=== PATIENT | female | born 1960 | race Caucasian/White ===

== ENCOUNTER 2020-11-26 11:05 | Outpatient (CLI) | payer OTHER ==
--- NOTE | 2020-11-26 13:25 | Ultrasound Report ---
PROCEDURE: Pelvic w/Transvaginal INDICATIONS: POSTMENOPAUSAL BLEEDING TECHNIQUE: Real-time scanning was performed of the pelvic organs, with image documentation. Additional endovagi nal scanning was necessary due to incomplete visualization of the adnexal and endometrial structures by transabdominal scanning. COMPARISON: None. FINDINGS: Transabdominal scanning: Limited scanning through the kidneys shows no hydronephrosis. No pathologi c free abdominal or pelvic fluid. Endovaginal scanning: Uterus: Uterus is normal in size at 5.3 x 3.4 x 4.5 cm. The endometrium measures 3 mm in combined t hickness. Nabothian cysts are noted at the cervix. Trace free fluid is present within the endometrial cavity. Calcified foci are noted within the endometrium. Ovaries: The right ovary measures 1.6 x 1.1 x 1.0 cm. The left ovary is not visualized. IMPRESSION: 1. Trace fluid in the endometrial cavity which may be associated with the patient's recent discharge. No other sonographic abnormalities. Of note, left ovary was not visualized today. Reviewed by: Nery Pinedo MD on 11/26/2020 12:23 PM [facility] Approved by: Nery Pinedo MD on 11/26/2020 12:23 PM [facility] Station ID: [id number]
== END 2020-11-26 11:06 | disposition home or self-care (01) ==
LOC: DI 11:05
PROVIDERS: ATTEND Obstetrics & Gynecology
DX: N95.0 Postmenopausal bleeding (principal)

== ENCOUNTER 2021-07-30 14:30 | Outpatient (CLI) | payer OTHER ==
[2021-07-31 21:47] LABS: BACTERIAL VAGINOSIS DNA NEGATIVE (NEGATIVE); CANDIDA GLABRATA DNA NEGATIVE (NEGATIVE); CANDIDA GROUP DNA NEGATIVE (NEGATIVE); CANDIDA KRUSEI DNA NEGATIVE (NEGATIVE); TRICHOMONAS VAGINALIS DNA NEGATIVE (NEGATIVE)
== END 2021-07-30 23:59 | disposition home or self-care (01) ==
LOC: LAB.R 14:30
PROVIDERS: ATTEND Obstetrics & Gynecology
DX: B37.3 Candidiasis of vulva and vagina (principal)
CPT/HCPCS: 87661; 87801

== ENCOUNTER 2021-12-25 14:58 | Outpatient (CLI) | payer OTHER ==
--- NOTE | 2021-12-25 16:43 | XRAY Report ---
PROCEDURE: Ribs 2 View RT INDICATIONS: R RIB PX TECHNIQUE: 2 views of the right ribs were acquired. COMPARISON: None FINDINGS: Surgical changes and devices: None. Bones and chest wall: No fractures or dislocations. No suspicious bony lesions. Overlying soft tis sues appear unremarkable. Lungs and pleura: The visualized lung appears clear. No pleural effusions or pneumothorax are visib le. IMPRESSION: No displaced rib fracture. Reviewed by: Gail Bansal MD, PhD on 12/25/2021 4:41 PM PST Approved by: Gail Bansal MD, PhD on 12/25/2021 4:41 PM PST Station ID: [id number]
== END 2021-12-25 23:59 | disposition home or self-care (01) ==
LOC: DI.N 14:58
PROVIDERS: ATTEND Family Medicine
DX: R07.81 Pleurodynia (principal)

== ENCOUNTER 2022-03-21 16:20 | Outpatient (CLI) | payer OTHER ==
--- NOTE | 2022-03-21 16:47 | XRAY Report ---
PROCEDURE: Chest 2 View X-Ray INDICATIONS: Chest pain TECHNIQUE: 2 view(s) of the chest. COMPARISON: None. FINDINGS: Surgical changes and devices: None. Lungs and pleura: No pleural effusions or pneumothorax. Lungs are clear. Mediastinum: Mediastinal contours are normal. Heart size is normal. Bones and chest wall: No suspicious bony abnormalities. Soft tissues appear unremarkable. IMPRESSION: No acute cardiopulmonary process demonstrated radiographically. Reviewed by: Arcenio Newman MD on 03/21/2022 4:46 PM PDT Approved by: Arcenio Newman MD on 03/21/2022 4:46 PM PDT Station ID: [id number]
== END 2022-03-21 16:21 | disposition home or self-care (01) ==
LOC: DI 16:20
PROVIDERS: ATTEND Student in an Organized Health Care Education/Training Program
DX: R07.9 Chest pain, unspecified (principal)

== ENCOUNTER 2022-09-25 13:36 | Outpatient (CLI) | payer OTHER ==
--- NOTE | 2022-09-26 12:52 | Mammography Report ---
BILATERAL DIGITAL SCREENING MAMMOGRAM 3D/2D: 09/25/2022 CLINICAL: Routine screening. No prior exams were available for comparison. There are scattered areas of fibroglandular density in both breasts (category b / 25%-50% glandular t issue). No significant masses, calcifications, or other findings are seen in either breast. IMPRESSION: NEGATIVE There is no mammographic evidence of malignancy. A 1 year screening mammogram is recommended. Based on the Tyrer Cuzick model (a risk assessment model) the patients lifetime risk is 6.0% and her 10 year risk is 2.8%. According to the ACR, ACS, and NCCN guidelines, an annual breast MRI exam asia g with mammogram is recommended if the patients lifetime risk is 20% or greater. This exam was interpreted at Station ID: [id number]. NOTE: For mammograms, a report in lay terms will be sent to the patient. Approximately 15% of breast malignancies will not be visualized mammographically. In the management of a palpable breast mass, a negative mammogram must not discourage biopsy of a clinically suspicious lesion. Electronically Signed By: Arcenio Newman M.D., jr/sunshine:09/25/2022 16:40:56 ACR BI-RADS Category 1: Negative 3341F PARENCHYMAL PATTERN: (A) - The breast(s) demonstrate(s) scattered fibroglandular densities. BI-RADS CATEGORY: (1) - 1 RECOMMENDATION: (ANNUAL) - Recommend routine annual screening mammography. [id number] 1 year screening LATERALITY: (B)
== END 2022-09-25 13:37 | disposition home or self-care (01) ==
LOC: DI.N 13:36
PROVIDERS: ATTEND Obstetrics & Gynecology
DX: Z12.31 Encounter for screening mammogram for malignant neoplasm of breast (principal)

== ENCOUNTER 2023-09-02 14:04 | Outpatient (CLI) | payer OTHER ==
--- NOTE | 2023-09-03 13:23 | Mammography Report ---
BILATERAL DIGITAL SCREENING MAMMOGRAM 3D/2D: 09/02/2023 CLINICAL: Routine screening. Comparison is made to exam dated: 09/25/2022 mammogram - [facility]. There are scattered areas of fibroglandular density in both breasts (category b / 25%-50% glandular t issue). No significant masses, calcifications, or other findings are seen in either breast. There has been no significant interval change. IMPRESSION: NEGATIVE There is no mammographic evidence of malignancy. A 1 year screening mammogram is recommended. Based on the Tyrer Cuzick model (a risk assessment model) the patients lifetime risk is 5.8% and her 10 year risk is 2.8%. According to the ACR, ACS, and NCCN guidelines, an annual breast MRI exam asia g with mammogram is recommended if the patients lifetime risk is 20% or greater. This exam was interpreted at Station ID: [id number]. NOTE: For mammograms, a report in lay terms will be sent to the patient. Approximately 15% of breast malignancies will not be visualized mammographically. In the management of a palpable breast mass, a negative mammogram must not discourage biopsy of a clinically suspicious lesion. Electronically Signed By: Drake Joe M.D. acr/penrad:09/02/2023 16:06:59 letter sent: No_Letter ACR BI-RADS Category 1: Negative 3341F PARENCHYMAL PATTERN: (A) - The breast(s) demonstrate(s) scattered fibroglandular densities. BI-RADS CATEGORY: (1) - 1 Mammogram [id number] 1 year screening LATERALITY: (B)
== END 2023-09-02 14:05 | disposition home or self-care (01) ==
LOC: DI 14:04
PROVIDERS: ATTEND Family Medicine
DX: Z12.31 Encounter for screening mammogram for malignant neoplasm of breast (principal)

== ENCOUNTER 2023-09-02 14:05 | Outpatient (CLI) | payer OTHER ==
--- NOTE | 2023-09-02 18:23 | Ultrasound Report ---
PROCEDURE: Head or Neck Soft Tissue INDICATIONS: DIFFUSE GOITER TECHNIQUE: Real-time scanning was performed of the thyroid gland, with image documentation. COMPARISON: None FINDINGS: Right: Thyroid lobe measures 6.5 x 4.0 x 2.9 cm, and is homogeneous in echotexture. Left: Thyroid lobe measures 7.1 x 3.0 x 4.0 cm, and is homogenous in echotexture. Isthmus: 5 mm thick. Nodule number: One Location: Right mid Size: 2.2 x 1.6 x 1.6 cm. Composition: Solid. Echogenicity: Isoechoic. Shape: wider than tall. Margins: Smooth (0 points). Echogenic foci: Punctate echogenic foci (3 points). Total points: 6 ACR TI-RADS category: 4. Nodule number: Two Location: Right inferior Size: 1.7 x 1.1 x 1.2 cm. Composition: Solid. Echogenicity: Hyperechoic. Shape: wider than tall. Margins: Smooth (0 points). Echogenic foci: None (0 points). Total points: 3 ACR TI-RADS category: 3. Nodule number: Three Location: Left inferior Size: 2.0 x 3.2 x 2.4 cm. Composition: Solid. Echogenicity: Hypoechoic. Shape: wider than tall. Margins: Smooth (0 points). Echogenic foci: None (0 points). Total points: 4 ACR TI-RADS category: 4. Nodule number: Four Location: Isthmus Size: 3.1 x 2.2 x 3.2 cm. Composition: Solid. Echogenicity: Isoechoic. Shape: wider than tall. Margins: Smooth (0 points). Echogenic foci: None (0 points). Total points: 3 ACR TI-RADS category: 3. IMPRESSION: Category 3 and category 4 bilateral thyroid nodules. Suggest FNA nodules 1, 3 and 4 ACR TI-RADS definitions and recommendations: TI-RADS 1 (benign): 0 points. FNA not needed. TI-RADS 2 (not suspicious): 2 points. FNA not needed. TI-RADS 3 (mildly suspicious): 3 points. "FNA if 2.5 cm or larger, follow up if 1.5 cm or larger (at 1, 3, and 5 years). TI-RADS 4 (moderately suspicious): 4-6 points. "FNA if 1.5 cm or larger, follow up if 1 cm or larger (at 1, 2, 3, and 5 years). TI-RADS 5 (highly suspicious): 7 points or more. "FNA if 1 cm or larger, follow up if 0.5 cm or larger (every year for 5 years). Reviewed by: Oskar Collazo MD on 09/02/2023 5:21 PM [facility] Approved by: Oskar Collazo MD on 09/02/2023 5:21 PM [facility] Station ID: [id number]
== END 2023-09-02 14:06 | disposition home or self-care (01) ==
LOC: DI 14:05
PROVIDERS: ATTEND Family Medicine
DX: R59.0 Localized enlarged lymph nodes (principal); E04.2 Nontoxic multinodular goiter

== ENCOUNTER 2023-09-23 18:30 | Emergency (ER) | payer MEDICARE, OTHER ==
[2023-09-23 18:41] VITALS: BP 135/78; O2SAT 95
[2023-09-23] MEDS ORDERED: DEXAMETHASONE 10 MG/ML VIAL IM STA (19:53)
[2023-09-23] MEDS ORDERED: KETOROLAC 60 MG/2 ML VIAL IM STA (19:53)
[2023-09-23] MEDS ORDERED: CYCLOBENZAPRINE 10 MG TABLET PO STA (19:56)
--- NOTE | 2023-09-23 20:17 | ED Physician Documentation ---
History of Present Illness - Stated complaint Stated Complaint: UPPER BACK PX - Chief complaint Chief Complaint: Back Pain - History obtained from History obtained from: Patient - Additonal information Additional information: The patient comes to the emergency department chief complaint of 3 months of intrascapular back pain that has gotten worse over the last couple of days. 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 She states that she has been working at the job for the last couple of years but that these last few months been worse. She does note that her duties have both come heavier over that time and this may be contributing. The patient denies any numbness or tingling. She does have some pain shooting down her right arm sometimes. She states that she has been noticing a sharp pain in the general area of pain whenever she flexes her neck, reaches for objects, or turns her head from side to side. No weakness in her arms. No neck pain. No other complaints at this time. She is otherwise fairly healthy. PD PAST MEDICAL HISTORY - Present Medications Home Medications: Ambulatory Orders Medication Instructions Recorded Confirmed Cyclobenzaprine [Flexeril] 10 mg PO TID PRN #20 tablet 09/23/23 HYDROcod/ACETAM 5/325 [Quinault 5/325] 1 - 2 tablet PO Q6H PRN #14 tablet 09/23/23 predniSONE [Deltasone] 10 mg PO [id number] #42 tab 09/23/23 - Allergies Allergies/Adverse Reactions: Allergies Allergy/AdvReac Type Severity Reaction Status Date / Time No Known Drug Allergies Allergy Verified 09/23/23 18:37 PD ED PE NORMAL - Vitals Vital signs reviewed: Yes - General General: Alert and oriented X 3, No acute distress, Well developed/nourished - HEENT HEENT: Atraumatic, PERRL, EOMI, Moist mucous membranes - Neck Neck: Supple, no meningeal sign, No bony TTP - Cardiac Cardiac: Strong equal pulses - Respiratory Respiratory: No respiratory distress - Back Back: No spinal TTP, Other (Tenderness to palpation of the intrascapular musculature bilaterally, with palpable spasm over the same area.) - Derm Derm: Normal color, Warm and dry, No rash - Extremities Extremities: No deformity, No tenderness to palpate, No edema - Neuro Neuro: Alert and oriented X 3, No motor deficit, No sensory deficit, Other (Otherwise grossly intact.) - Psych Psych: Normal mood, Normal affect Results - Vitals Vitals: Vital Signs - 24 hr 09/23/23 18:33 Temperature 37 C Heart Rate 73 Respiratory 16 Rate Blood Pressure 135/78 H O2 Saturation 95 Oxygen O2 Source Room air PD Medical Decision Making - ED course Complexity details: considered differential, d/w patient, d/w family ED course: I discussed with the patient and her that the discomfort she is experiencing is most consistent with a muscular source, most likely muscular spasm. The patient has been trying quite a few modalities at home to control this including using a TENS unit and have the area massaged by her . However, she has not been able to gain any relief. I have ordered doses of Decadron, Toradol, and Flexeril here. She does not wish to have x-rays as she has not had any injury, but states she will follow-up with her primary doctor to discuss possibly having MRI done. We have discussed symptomatic management at home, as well as the usual indications for return. Departure - Departure Disposition: Home, Self Care Clinical Impression: Spasm of thoracic back muscle Condition: Stable Instructions: ED Spasm Back No Trauma Prescriptions: predniSONE [Deltasone] 10 mg PO [id number] #42 tab Cyclobenzaprine [Flexeril] 10 mg PO TID PRN #20 tablet PRN Reason: Spasms HYDROcod/ACETAM 5/325 [Quinault 5/325] 1 - 2 tablet PO Q6H PRN #14 tablet PRN Reason: Pain Comments: The nature of your pain, as well as the movements that make it worse and the location, indicate inflammation and spasm of the lower portions of your bilateral trapezius muscles. Some of your other paraspinal muscles may be involved, as well. Sometimes muscle spasm can also cause some pressure on the nerves that come out of the spine and that can be part of the sharp shooting pain. You have been treated with steroid and dose of muscle relaxer tonight. You have also been given an anti-inflammatory. Prescriptions for pain medicine, as well as steroid and muscle relaxer have been electronically transmitted to the [facility] pharmacy in [place] for you. Please follow-up with your primary doctor if your symptoms continue for more than the next week or two, to discuss having MRI done.
== END 2023-09-23 20:26 | disposition home or self-care (01) ==
LOC: ED 18:30
DX: M62.830 Muscle spasm of back (principal)
CPT/HCPCS: 96372; 99283; A9270

== ENCOUNTER 2023-10-21 12:57 | Outpatient (CLI) | payer MEDICARE ==
[2023-10-21 19:13] LABS: THYROID STIMULATING HORMONE 0.17 uIU/mL (0.34-5.60)
== END 2023-10-21 12:58 | disposition home or self-care (01) ==
LOC: LAB.N 12:57
PROVIDERS: ATTEND Internal Medicine Endocrinology, Diabetes & Metabolism
DX: R94.6 Abnormal results of thyroid function studies (principal)
CPT/HCPCS: 36415; 84439; 84443

== ENCOUNTER 2024-01-19 08:26 | Outpatient (CLI) | payer OTHER ==
[2024-01-19 12:47] LABS: HCT - HEMATOCRIT 43.3 % (37.0-47.0); HGB - HEMOGLOBIN 13.6 g/dL (12.0-16.0); MEAN CORPUSCULAR HEMOGLOBIN 27.5 pg (27.0-31.0); MEAN CORPUSCULAR HGB CONC 31.4 g/dL (32.0-36.0); MEAN CORPUSCULAR VOLUME 87.7 fL (81.0-99.0); MEAN PLATELET VOLUME 10.4 fL (7.9-10.8); RED BLOOD COUNT 4.94 10^6/uL (4.20-5.40); RED CELL DISTRIBUTION WIDTH 14.3 % (12.0-15.0); WHITE BLOOD COUNT 5.5 x10^3/uL (4.8-10.8)
[2024-01-19 13:12] LABS: ALBUMIN 4.2 g/dL (3.2-5.5); ALBUMIN/GLOBULIN RATIO 1.3 (1.0-2.2); BILIRUBIN,TOTAL 0.4 mg/dL (0.2-1.0); CALCIUM 9.5 mg/dL (8.5-10.3); CREATININE 0.6 mg/dL (0.6-1.3); POTASSIUM 4.3 mmol/L (3.5-4.5); TOTAL PROTEIN 7.5 g/dL (6.4-8.9)
[2024-01-19 13:21] LABS: THYROID STIMULATING HORMONE 0.47 uIU/mL (0.34-5.60)
== END 2024-01-19 08:27 | disposition home or self-care (01) ==
LOC: LAB.N 08:26
PROVIDERS: ATTEND Internal Medicine Endocrinology, Diabetes & Metabolism
DX: E05.90 Thyrotoxicosis, unspecified without thyrotoxic crisis or storm (principal)
CPT/HCPCS: 36415; 80053; 84439; 84443; 84480; 84481; 85027

== ENCOUNTER 2024-02-17 14:41 | Outpatient (CLI) | payer OTHER ==
[2024-02-17 17:48] LABS: MEAN CORPUSCULAR HEMOGLOBIN 27.6 pg (27.0-31.0); MEAN CORPUSCULAR HGB CONC 31.7 g/dL (32.0-36.0); MEAN PLATELET VOLUME 10.4 fL (7.9-10.8); RED BLOOD COUNT 4.71 10^6/uL (4.20-5.40); RED CELL DISTRIBUTION WIDTH 14.1 % (12.0-15.0); WHITE BLOOD COUNT 6.4 x10^3/uL (4.8-10.8)
[2024-02-17 18:04] LABS: ALBUMIN 4.1 g/dL (3.2-5.5); ALBUMIN/GLOBULIN RATIO 1.4 (1.0-2.2); BILIRUBIN,TOTAL 0.5 mg/dL (0.2-1.0); CALCIUM 9.4 mg/dL (8.5-10.3); CREATININE 0.6 mg/dL (0.6-1.3); POTASSIUM 3.8 mmol/L (3.5-4.5); TOTAL PROTEIN 7.1 g/dL (6.4-8.9)
[2024-02-18 23:08] LABS: THYROID PEROXIDASE (TPO) AB <9 IU/mL (0-34)
== END 2024-02-17 14:42 | disposition home or self-care (01) ==
LOC: LAB.N 14:41
PROVIDERS: ATTEND Internal Medicine Endocrinology, Diabetes & Metabolism
DX: E05.90 Thyrotoxicosis, unspecified without thyrotoxic crisis or storm (principal)
CPT/HCPCS: 36415; 80053; 81599; 84445; 85027; 86376; 86800

== ENCOUNTER 2024-03-24 13:45 | Outpatient (CLI) | payer OTHER ==
[~2024-03-24 13:45] MED LIST: LIDOCAINE-MPF 1% 5 ML VIAL ONE
[2024-03-24] MEDS: LIDOCAINE-MPF 1% 5 ML VIAL TD ONE (15:58)
--- NOTE | 2024-03-25 16:08 | Ultrasound Report ---
PROCEDURE: FNA Bx w/US Gdn 1st Les INDICATIONS: THYROID NODULES TECHNIQUE: The indications, alternatives, benefits, risks, and complications of the procedure were explained to the patient. Written informed consent was obtained and placed in the chart. The area of interest wa s examined sonographically and a site was chosen for ultrasound guided percutaneous sampling. The sk in was prepared and draped in the usual fashion, and anesthetized with 1% lidocaine infiltrated from the skin down to the lesion. Multiple passes were then performed, with contents emptied into an appr [facility] pathology specimen container. A bandage was applied to the area of access at completion of t he study. COMPARISON: Thyroid ultrasound 09/02/2023 FINDINGS: Location(s) of lesion(s) sampled: [place]: 25 gauge hypodermic needles. Number of passes: 6 Medications: 1% lidocaine for local anaesthesia. Complications: None. IMPRESSION: Successful ultrasound-guided isthmus fine needle aspiration, with cytology results pending. It is no alfredito that the requested biopsy of right and left nodules were not completed at this time. Upon real-ti me imaging, the areas appeared heterogeneous as opposed to focal defined masses as previous. It is re commended interval follow-up as opposed to FNA. Reviewed by: Elizabeth Clark MD on 03/25/2024 4:07 PM PDT Approved by: Elizabeth Clark MD on 03/25/2024 4:07 PM PDT Station ID: [id number]
== END 2024-03-24 13:46 | disposition home or self-care (01) ==
LOC: DI 13:45
PROVIDERS: ATTEND Internal Medicine Endocrinology, Diabetes & Metabolism
DX: E04.2 Nontoxic multinodular goiter (principal)
CPT/HCPCS: 10005

== ENCOUNTER 2024-04-09 13:20 | Emergency (ER) | payer OTHER ==
--- NOTE | 2024-04-09 14:11 | ED Physician Documentation ---
PD HPI LOWER EXT INJURY - Stated complaint Stated Complaint: GLF/LT ANKLE INJ - Chief complaint Chief Complaint: Trauma Ext - History obtained from History obtained from: Patient - History of Present Illness PD HPI LOW EXT INJURY LOCATION: Left, Ankle, Foot Type of injury: Twist (he was carrying object and her foot caught and led to twisting of the girish s [employer]). No: Fall Timing - onset: Yesterday Worsened by: No: Moving, Palpating Associated symptoms: Swelling. No: Weakness, Numbness PD PAST MEDICAL HISTORY - Past Medical History Endocrine/Autoimmune: HyPOthyroidism - Past Surgical History Past Surgical History: No - Present Medications Home Medications: Ambulatory Orders Medication Instructions Recorded Confirmed methIMAzole [Methimazole] 5 mg PO DAILY 04/09/24 04/09/24 - Allergies Allergies/Adverse Reactions: Allergies Allergy/AdvReac Type Severity Reaction Status Date / Time No Known Drug Allergies Allergy Verified 04/09/24 13:58 - Social History Does the pt smoke?: No Smoking Status: Former smoker Does the pt drink ETOH?: No Does the pt have substance abuse?: No PD ED PE NORMAL - Vitals Vital signs reviewed: Yes - Derm Derm: Normal color, Warm and dry - Extremities Extremities: Other (left foot and ankle are not tender at malleoli. Tender dorsolateral foot. No noted deformity. Pain to palpation and with inversions tress. ) - Neuro Neuro: No motor deficit, No sensory deficit Results - Vitals Vitals: Oxygen O2 Source Room air - Rads (name of study) foot and ankle Relevant Findings:: Prelim report reviewed, EMP independent interpretation of test (on latral view, c/w ligamentout uprouting. ) PD Medical Decision Making - ED course Complexity details: reviewed results (avulsion deformity dorsal lateral talus. aligns treatment more as ligamentous injury/tear), considered differential (inversion injury but unable to bear weight and tenderness is anterolateral foot at talus area. ), d/w patient Departure - Departure Disposition: 01 Home, Self Care Clinical Impression: Ankle sprain, Closed avulsion fracture of left talus Condition: Stable Record reviewed to determine appropriate education?: Yes Instructions: ED Sprain Foot, ED Boot Aircast Walker Follow-Up: Patsy Foote MD [Primary Care Provider] - [facility] [Provider Group] Comments: Your x-ray shows a small avulsion fracture at the top of the talar bone which is in the proximal foot. It is the picture that I showed you with that small flake of bone. This does not represent a significant fracture per se but does represent a tearing up of the attachment point for the ligament from the ankle to the foot. A torn ligament can take several weeks to heal up well. Will start with a walking cast boot and crutches for partial to no weightbearing as needed. Progress weightbearing as tolerated. Call the orthopedic office for follow-up appointment for mid end of next week for reevaluation. For now we will assume you will need to be off work as I would not expect comfortable standing and walking for the number of hours that you work. They can reassess that on the follow-up. Elevate ice and rest your foot and ankle often today and tomorrow to help reduce swelling. If you do need medication for pain, Tylenol and/or ibuprofen combination is most useful. Forms: PCP List, Activity restrictions Discharge Date/Time: 04/09/24 15:54
--- NOTE | 2024-04-09 14:52 | XRAY Report ---
PROCEDURE: Ankle 3+V LT INDICATIONS: Trauma TECHNIQUE: 3 views of the ankle were acquired. COMPARISON: None. FINDINGS: Bones: Small minimally displaced avulsion-type fracture at the dorsal aspect of the talar head. Osse ous structures otherwise appear to be intact. Small posterior calcaneal enthesophyte. Soft tissues: Nonspecific soft tissue edema. IMPRESSION: Small minimally displaced avulsion fracture at the dorsal talar head. Reviewed by: Benny Zepeda MD on 04/09/2024 2:51 PM PDT Approved by: Benny Zepeda MD on 04/09/2024 2:51 PM PDT Station ID: [id number]
--- NOTE | 2024-04-09 14:58 | XRAY Report ---
PROCEDURE: Foot 3+V LT INDICATIONS: Trauma TECHNIQUE: 3 views of the foot were acquired. COMPARISON: None. FINDINGS: Bones: Small minimally displaced avulsion fracture dorsal to the talar head. Small posterior and plan tar calcaneal enthesophytes. Mild chronic appearing deformity of the 3rd proximal phalangeal shaft. N o acute forefoot fracture is seen. Soft tissues: No suspicious soft tissue calcifications. IMPRESSION: Small minimally displaced avulsion fracture at the dorsal talar head. Reviewed by: Benny Zepeda MD on 04/09/2024 2:57 PM PDT Approved by: Benny Zepeda MD on 04/09/2024 2:57 PM PDT Station ID: [id number]
[2024-04-09 16:02] VITALS: BP 121/82; O2SAT 100
== END 2024-04-09 15:54 | disposition home or self-care (01) ==
LOC: ED 13:20
DX: S92.122A Displaced fracture of body of left talus, initial encounter for closed fracture (principal); S93.402A Sprain of unspecified ligament of left ankle, initial encounter; X50.1XXA Overexertion from prolonged static or awkward postures, initial encounter; E03.9 Hypothyroidism, unspecified
CPT/HCPCS: 99283; 99284

== ENCOUNTER 2024-04-21 10:08 | Outpatient (CLI) | payer OTHER ==
[2024-04-21 11:46] LABS: HCT - HEMATOCRIT 42.4 % (37.0-47.0); HGB - HEMOGLOBIN 13.8 g/dL (12.0-16.0); MEAN CORPUSCULAR HGB CONC 32.5 g/dL (32.0-36.0); MEAN CORPUSCULAR VOLUME 86.2 fL (81.0-99.0); MEAN PLATELET VOLUME 9.7 fL (7.9-10.8); RED BLOOD COUNT 4.92 10^6/uL (4.20-5.40); RED CELL DISTRIBUTION WIDTH 14.9 % (12.0-15.0); WHITE BLOOD COUNT 5.7 x10^3/uL (4.8-10.8)
[2024-04-21 11:58] LABS: ALBUMIN 4.1 g/dL (3.2-5.5); ALBUMIN/GLOBULIN RATIO 1.2 (1.0-2.2); BILIRUBIN,TOTAL 0.4 mg/dL (0.2-1.0); CALCIUM 9.8 mg/dL (8.5-10.3); CREATININE 0.7 mg/dL (0.6-1.3); POTASSIUM 4.2 mmol/L (3.5-4.5); TOTAL PROTEIN 7.4 g/dL (6.4-8.9)
[2024-04-21 12:12] LABS: THYROID STIMULATING HORMONE 1.24 uIU/mL (0.34-5.60)
== END 2024-04-21 10:09 | disposition home or self-care (01) ==
LOC: LAB.N 10:08
PROVIDERS: ATTEND Internal Medicine Endocrinology, Diabetes & Metabolism
DX: E05.90 Thyrotoxicosis, unspecified without thyrotoxic crisis or storm (principal)
CPT/HCPCS: 36415; 80053; 84439; 84443; 84480; 84481; 85027